=== PATIENT | male | born 1955 | race Caucasian/White ===

== ENCOUNTER 2020-01-27 14:31 | Outpatient (CLI) | payer BC, SELFPAY ==
--- NOTE | ~2020-01-27 | XR_ITS ---
EXAMINATION: XR lumbar spine 2-3V EXAM DATE: 01/27/2020 15:06 INDICATION: Low back pain. TECHNIQUE: Lumber spine frontal, lateral, lateral L5-S1 projections for interpretation. There is no prior study for comparison. FINDINGS: There is mild to moderate disc disease at L4-5, mild disc disease at the other lumbar leve ls. Vertebral body heights are maintained. The vertebral bodies are aligned in the AP dimension. Sacr um, sacroiliac joints, sacral arcuate lines are intact. There is mild abdominal aortic and iliac david riosclerotic disease. There is moderate lower lumbar facet arthropathy. IMPRESSION: 1. Mild to moderate lumbar spondylosis. Reviewed, dictated and finalized at location A.
--- NOTE | ~2020-01-27 | XR_ITS ---
EXAMINATION: XR thoracic spine 2V EXAM DATE: 01/27/2020 15:06 INDICATION: Dorsalgia, mid back pain. TECHNIQUE: Frontal and lateral projections of the thoracic spine as well as lateral swimmers projecti on of the upper thoracic spine for interpretation. There is no prior study for comparison. FINDINGS: Mild diffuse mid and lower thoracic disc disease. No endplate erosive change. There is so me thoracic kyphosis, but the vertebral body heights are relatively well-maintained. Paraspinal soft tissue is unremarkable. IMPRESSION: 1. Mild mid thoracic kyphosis. 2. Mild spondylosis. Reviewed, dictated and finalized at location A.
== END 2020-01-27 14:32 | disposition home or self-care (01) ==
PROVIDERS: PCP Family Medicine; Visit Provider Family Medicine
DX: M54.9 Dorsalgia, unspecified (principal); M40.294 Other kyphosis, thoracic region; M47.814 Spondylosis without myelopathy or radiculopathy, thoracic region; M47.816 Spondylosis without myelopathy or radiculopathy, lumbar region
CPT/HCPCS: 72070; 72100

== ENCOUNTER → 2020-11-19 02:52 | Outpatient (CLI) | payer MEDICARE, SELFPAY ==
[2020-11-19 19:44] LABS: SARS-CoV-2 RNA PCR Negative
== END ==
PROVIDERS: PCP Family Medicine; Visit Provider Internal Medicine Gastroenterology
DX: Z01.812 Encounter for preprocedural laboratory examination (principal); Z20.822 Contact with and (suspected) exposure to COVID-19
CPT/HCPCS: C9803; U0003; U0005

== ENCOUNTER 2020-11-22 00:24 | Day surgery (SDC) | payer MEDICARE, SELFPAY ==
[2020-11-11 12:13] VITALS: BMI 24.4
[2020-11-22 09:26] VITALS: BP 142/83; PULSE 72; RESP 16; TEMP 35.8; O2SAT 100; BMI 23.9
[2020-11-22] MEDS: LACTATED RINGERS 1,000 ML 150 ML IV CONT (09:36)
--- NOTE | 2020-11-22 10:11 | WPDANESEPPF ---
Anes - Initial Pre Proc Eval Procedure: Operation Date: 11/22/20 10:30 Proposed Procedures p Screening Colonoscopy - Tariq Oliver MD Date/Time: 11/22/20 10:11 Surgeon: Tariq Oliver MD Pre Op Diagnosis: hx colon polyps, family hx colon CA Patient Data Age: 65 Gender: M Height: 5 ft 9 in Weight: 73.6 kg Last Vital Signs Temp 96.5 F L 11/22/20 09:26 Pulse 72 11/22/20 09:26 Resp 16 11/22/20 09:26 BP 142/83 H 11/22/20 09:26 Pulse Ox 100 11/22/20 09:26 Allergies Allergy/AdvReac Type Severity Reaction Status Date / Time No Known Allergies Allergy Mild Verified 11/22/20 09:24 Home Medications Medication Instructions Recorded Confirmed Type rivaroxaban 20 mg tablet 20 mg PO DAILY 09/21/19 11/22/20 History multivitamin 1 tablet PO DAILY 07/18/20 11/22/20 History lisinopril 10 mg tablet See Rx Instructions .ROUTE 07/26/20 11/22/20 Rx .COMPLEX #90 tablet atorvastatin 10 mg tablet See Rx Instructions .ROUTE 08/26/20 11/22/20 Rx .COMPLEX #90 tablet metoprolol tartrate 50 mg tablet See Rx Instructions .ROUTE 11/22/20 11/22/20 Rx .COMPLEX #60 tablet Patient hx anesthesia problems: none Family hx anesthesia problems: none [facility] Past Medical History Medical History (Updated 10/24/20 @ 11:09 by Odilia Wharton PA-C) A-fib Diverticulitis Hemoglobin A1c less than 7.0% 05/24/20, A1c= 5.4 Hepatitis C antibody test negative (04/16/17) History of cardioversion Surgical History Surgical History H/O hernia repair H/O prior ablation treatment Family History Family History (Updated 10/24/20 @ 11:02 by Odilia Wharton PA-C) Father Acute myocardial infarction Carcinoma of colon Sibling Malignant neoplasm of prostate Social History Social History Smoking packs per day: 1 Smoking cigarettes per day: 20.0 Years smoked: 15 Smoking pack-years: 15.00 Smoking status: Former smoker Tobacco type: cigarettes Smoking end date: 08/05/10 Alcohol intake: current Drinks per week: 10 Substance use: current Substance use type: marijuana Last use: 11/11/2020 Living arrangements: with family Gender identity (if verbalized by the patient): Male Spiritual care concerns: No Anes - Eval Final PreProcedure Day of Procedure 11/22/20 10:11 Patient weight: normal Heart: regular rate and rhythm Lungs: clear to auscultation Airway: Mallampati scale class II Neurological: alert and oriented Last oral intake: >/= 8 hours ASA classification: III Emergent: no Anesthetic plan: proceed Anesthesia type and monitoring: general GIVS and standard monitoring Informed Consent: The patient's anesthetic plan and its attendant risks and benefits were discussed with the patient/family/POA. Questions were solicited and answers provided to the satisfaction of the patient/family/POA.
--- NOTE | 2020-11-22 10:25 | PM.HPGS ---
History of Present Illness History of Present Illness Consent: Risks, benefits, and alternatives have been discussed and questions answered. Patient agrees to proceed with procedure. Chief complaint: hx colon polyps, family hx colon CA Narrative: Félix Tobias is a 65 year old male Here for colon cancer screening. His father had colon cancer Review of Systems Review of Systems: All systems reviewed & are unremarkable except as noted in HPI and below PMFSH Past Medical History Medical History A-fib Diverticulitis Hemoglobin A1c less than 7.0% 05/24/20, A1c= 5.4 Hepatitis C antibody test negative (04/16/17) History of cardioversion Surgical History Surgical History H/O hernia repair H/O prior ablation treatment Family History Family History Father Acute myocardial infarction Carcinoma of colon Sibling Malignant neoplasm of prostate Social History Social History Smoking packs per day: 1 Smoking cigarettes per day: 20.0 Years smoked: 15 Smoking pack-years: 15.00 Smoking status: Former smoker Tobacco type: cigarettes Smoking end date: 08/05/10 Alcohol intake: current Drinks per week: 10 Substance use: current Substance use type: marijuana Last use: 11/11/2020 Living arrangements: with family Gender identity (if verbalized by the patient): Male Spiritual care concerns: No Meds Home Medications and Allergies Home Medications Medication Instructions Recorded Confirmed Type rivaroxaban 20 mg tablet 20 mg PO DAILY 09/21/19 11/22/20 History multivitamin 1 tablet PO DAILY 07/18/20 11/22/20 History lisinopril 10 mg tablet See Rx Instructions .ROUTE 07/26/20 11/22/20 Rx .COMPLEX #90 tablet atorvastatin 10 mg tablet See Rx Instructions .ROUTE 08/26/20 11/22/20 Rx .COMPLEX #90 tablet metoprolol tartrate 50 mg tablet See Rx Instructions .ROUTE 11/22/20 11/22/20 Rx .COMPLEX #60 tablet Allergies Allergy/AdvReac Type Severity Reaction Status Date / Time No Known Allergies Allergy Mild Verified 11/22/20 09:24 Vital Signs Vital Signs - 24 hr 11/22/20 09:26 Temperature 35.8 C L Pulse Rate 72 Respiratory Rate 16 Blood Pressure 142/83 H Pulse Oximetry 100 Exam Resp: Auscultation: clear to auscultation bilaterally Cardio: Rate: regular rate Rhythm: regular rhythm GI: GI Palp: Yes Soft to palpation and No Tenderness to palpation present (GI) Assessment and Plan Assessment and plan (1) Colon cancer screening: Code(s): Z12.11 - Encounter for screening for malignant neoplasm of colon Status: Acute Assessment and Plan: Colonoscopy with possible biopsy or polypectomy or cautery or injection of substances.
[2020-11-22 11:08] VITALS: BP 106/72; PULSE 74; RESP 23; O2SAT 99
[2020-11-22 11:18] VITALS: BP 112/60; PULSE 65; RESP 16; O2SAT 99
[2020-11-22 11:28] VITALS: BP 119/80; PULSE 65; RESP 20; O2SAT 98
== END 2020-11-22 11:38 | disposition home or self-care (01) ==
PROVIDERS: PCP Family Medicine; Visit Provider Internal Medicine Gastroenterology
PROC: 0DJD8ZZ Inspection of Lower Intestinal Tract, Via Natural or Artificial Opening Endoscopic (ICD-10-PCS; CPT 45378; principal; 2020-11-22 10:30)
DX: Z12.11 Encounter for screening for malignant neoplasm of colon (principal); K57.30 Diverticulosis of large intestine without perforation or abscess without bleeding; K64.8 Other hemorrhoids; Z86.010 Personal history of colon polyps; Z80.0 Family history of malignant neoplasm of digestive organs; I48.91 Unspecified atrial fibrillation; Z79.01 Long term (current) use of anticoagulants; Z87.891 Personal history of nicotine dependence; F12.90 Cannabis use, unspecified, uncomplicated
CPT/HCPCS: G0105; C9803; J2704; J7120; U0003; U0005

== ENCOUNTER 2022-03-07 09:05 | Outpatient (CLI) | payer MEDICARE, SELFPAY ==
--- NOTE | ~2022-03-07 | CT_ITS ---
EXAMINATION: CT abdomen pelvis w con DATE: 03/07/2022 09:49 INDICATION: Left lower quadrant abdominal pain. Father had stomach cancer. TECHNIQUE: Computed tomography (CT) of the abdomen and pelvis was performed with 100 CC Omnipaque 350 intravenous contrast. Automated exposure control and iterative reconstruction technique were employe d. Exam dose: 302.62 mGy-cm total exam DLP. COMPARISON: 06/23/2018 CT abdomen pelvis FINDINGS: Minimal discoid atelectasis or scarring at the lung bases. Normal heart size. No pericardial or pleural effusion. Small sliding hiatal hernia. There are several hepatic cysts measuring up to approximately 9 the gall bladder appears unremarkable. No bile duct or pancreatic duct dilatation. No pancreatic mass lesion o r calcification. Normal splenic size. Normal adrenal morphology bilaterally. Approximately 1 cm and 2.3 cm right renal cysts. The kidneys are otherwise unremarkable. No urinary t ract calculus or hydroureteronephrosis. There is moderate diffuse thickening of the urinary bladder w all, likely due to moderate prostatomegaly. No inguinal hernia is evident. There is atherosclerotic calcification but normal caliber of the abdominal aorta and iliac arteries. No intraperitoneal or retroperitoneal or pelvic mass lesion or adenopathy or ascites. The stomach is relatively decompressed which likely accounts for diffuse moderate prominence of the s tomach wall. No apparent focal gastric mass lesion is evident on this limited examination of the stom ach. Upper gastrointestinal series or upper endoscopy would be more sensitive for detection of gastri c carcinoma. Normal appendix. Diverticulosis of left and right colon; no evidence of diverticulitis. No bowel obst ruction, bowel wall thickening, pneumatosis or intraperitoneal free air is detected. Very small fat-containing umbilical hernia. Included skeletal structures are unremarkable other than mild degenerative change of the thoracic and lumbar spine and bilateral hip osteoarthritis. IMPRESSION: Small sliding hiatal hernia Stable hepatic cysts Right renal cysts Prostatomegaly, likely accounting for moderate thickening of the urinary bladder wall Normal appendix Diverticulosis of left and right colon; no evidence of diverticulitis Reviewed, dictated and finalized at Location A. Reviewed, dictated and finalized at location B. IMPRESSION: Small sliding hiatal hernia Stable hepatic cysts Right renal cysts Prostatomegaly, likely accounting for moderate thickening of the urinary bladde r wall Normal appendix Diverticulosis of left and right colon; no evidence of diverticulitis
[2022-03-07 09:40] LABS: Estimated Glomerular Filt Rate > 60
== END 2022-03-07 09:06 | disposition home or self-care (01) ==
PROVIDERS: PCP Family Medicine; Visit Provider Family Medicine
DX: R10.32 Left lower quadrant pain (principal); Z80.0 Family history of malignant neoplasm of digestive organs; K44.9 Diaphragmatic hernia without obstruction or gangrene; K76.89 Other specified diseases of liver; N28.1 Cyst of kidney, acquired; N40.0 Benign prostatic hyperplasia without lower urinary tract symptoms; K57.30 Diverticulosis of large intestine without perforation or abscess without bleeding
CPT/HCPCS: 74177; Q9967

== ENCOUNTER 2023-01-23 08:46 | Outpatient (CLI) | payer MEDICARE, SELFPAY ==
[2023-01-23 17:30] LABS: Hematocrit 44.2 % (42.0-52.0); Hemoglobin 14.5 g/dL (14.0-18.0); Immature Platelet Fraction Pct 13.3 % (0.9-11.2); Mean Corpuscular HGB Conc 32.8 g/dl (32-36); Mean Corpuscular Hemoglobin 31.7 pg (26-34); Mean Corpuscular Volume 96.5 fl (80-100); Mean Platelet Volume 13.1 fl (7.4-10.4); Platelet Count Result 254 k/mm3 (150-375); Red Blood Count 4.58 M/mm3 (4.6-6.20); Red Cell Distribution Width 13.4 % (11.5-14.5); White Blood Count 9.3 K/mm3 (4.5-10.0)
[2023-01-23 20:25] LABS: Alanine Aminotransferase 25 U/L (6-50); Albumin Level 4.2 g/dL (3.5-5.1); Alkaline Phosphatase 75 U/L (38-126); Anion Gap 5 mmol/L (8-16); Aspartate Amino Transferase 43 U/L (17-59); Bilirubin,Total 0.9 mg/dL (0.2-1.3); Blood Urea Nitrogen 18 mg/dL (9-20); Calcium 8.8 mg/dL (8.4-10.2); Carbon Dioxide 26 mmol/L (22-30); Chloride 105 mmol/L (98-107); Cholesterol 169 mg/dL (0-200); Estimated Glomerular Filt Rate > 60; Glucose 100 mg/dL (65-110); HDL Direct 56 mg/dL; Potassium 4.3 mmol/L (3.4-5.0); Sodium 136 mmol/L (137-145); Triglycerides 149 mg/dL (<150)
[2023-01-23 20:36] LABS: LDL Cholesterol Direct 82 mg/dL
[2023-01-23 20:54] LABS: Iron 158 ug/dL (49-181); Prostate Specific Antigen 2.1 ng/mL (< OR = 4.0)
[2023-01-23 21:03] LABS: Percent Iron Saturation 54 % (20-50)
[2023-01-23 22:25] LABS: Hemoglobin A1C 5.5 % (<5.7)
== END 2023-01-23 08:47 | disposition home or self-care (01) ==
LOC: ANHASCLAB 08:50 → ANHGOSHLAB 09:01
PROVIDERS: PCP Family Medicine; Visit Provider Family Medicine
DX: R73.03 Prediabetes (principal); E78.5 Hyperlipidemia, unspecified; D64.9 Anemia, unspecified; I10 Essential (primary) hypertension; Z12.5 Encounter for screening for malignant neoplasm of prostate
CPT/HCPCS: 36415; 80053; 80061; 82728; 83036; 83540; 83550; 84153; 84443; 85027; 85055; G0103

== ENCOUNTER 2024-10-16 00:05 | Day surgery (SDC) | payer MEDICARE, SELFPAY ==
[2024-10-15 15:35] VITALS: BMI 23.0
[2024-10-16] VITALS (8 sets, daily range): BP systolic 106–118; BP diastolic 81–95; PULSE 71–136; RESP 12–20; TEMP 36.4; O2SAT 98–100
--- OUTSIDE RECORDS SUMMARY | 2024-10-16 00:07 | XMS_ITS | Referral Summary ---
Author Organization [facility] [place] [address] [place] [address] [address] [place] [address] Care Team Providers Care Rfid Analyst Name Role Phone Lani Feng DO Primary Care Provider [phone]- [phone] Encounters Date Type Department Care Team Description 10/13/2024 Telephone [facility] Cardiology [address] [place] [address] Trevon Negron MD 10/13/2024 9:30 AM CDT Office Visit [facility] Medical [facility] Cardiology [address] [place] [address] Trevon Negron MD PAF (paroxysmal atrial fibrillation) (HCC) (Primary Dx); Essential hypertension; PFO (patent foramen ovale); Chronic anticoagulation from Last 3 Months Allergies No known active allergies Medications metoprolol (LOPRESSOR) 50 mg tablet Take one by mouth two times per day prn for fast HR 0 02/11/2009 Active atorvastatin (LIPITOR) 10 mg tablet take 1 tablet by oral route every other day 0 0 08/03/2014 Active lisinopril (PRINIVIL,ZESTRI L) 10 mg tablet take 1 tablet by oral route every day 30 5 03/31/2015 Active zw-njj-rtmjn-lyc [id number] 200-175-250 mcg tablet Take 1 tablet by mouth daily Active ferrous sulfate 325 mg (65 mg of elemental iron) tablet Take 1 tablet (325 mg total) by mouth 2 (two) times a day 11/01/2021 Active Xarelto 20 mg tabletIndication s:PAF (paroxysmal atrial fibrillation) (HCC) TAKE 1 TABLET BY MOUTH EVERY DAY 30 tablet 5 2024 Active Active Problems Problem Noted Date Diagnosed Date PFO (patent foramen ovale) 05/03/2021 PND (paroxysmal nocturnal dyspnea) 04/19/2020 Chronic anticoagulation 10/24/2018 Status post circumferential ablation of pulmonar y vein 01/06/2018 PAF (paroxysmal atrial fibrillation) 10/10/2017 Essential hypertension 10/10/2017 History of tobacco abuse 11/07/2016 Overview (12/28/2016): History of tobacco abuse Social History Tobacco Use Types Packs/Day Years Used Date Smoking Tobacco: Former Cigarettes 1 10 0 10/10/2001 - 10/11/2011 Cigars Smokeless Tobacco: Former Snuff, Chew Tobacco Cessation:Counseling Given: Not Answered Comments:Smoking History Packs/day: 1.5 Packs Alcohol Use Standard Drinks/Week Comments Yes 12 (1 standard drink = 0.6 oz pu re alcohol) Sex and Gender Information Value Date Recorded Sex Assigned at Not on file 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 Gender Identity Male 04/26/2021 10:13 AM CDT Sexual Orientation Straight 04/26/2021 10 :13 AM CDT Last Filed Vital Signs Vital Sign Reading Time Taken Comments Blood Pressure 122/78 10/13/2024 9:17 AM CDT Pulse 125 10/13/2024 9:17 AM CDT Temperature 36.4 C (97.5 F) 11/09/2020 8:04 AM CDT Respiratory Rate - - Oxygen Saturation 99% 10/13/2024 9:17 AM CDT Inhaled Oxygen Concentration - - Weight 72.6 kg (160 lb) 10/13/2024 9:17 AM CDT Height 175.3 cm (5' 9 ) 10/13/2024 9:17 AM CDT Body Mass Index 23.63 10/13/2024 9:17 AM CDT Plan of Treatment Not on file Procedures Procedure Name Priority Date/Time Associated Diagnosis Comments ELECTROCARDIOGRAM REPORT Routine 025 10:31 AM CDT PAF (paroxysmal atrial fibrillation) (HCC) from Last 3 Months Results * Electrocardiogram Report (10/13/2024 10:31 AM CDT) us Trevon Negron MD ECG ORDERABLES Final Res ult from Last 3 Months Insurance [employer] Care Teams Rfid Analyst Relationship Specialty Start Date End Date Lani Feng DO PCP - General Family Medicine 10/12/19
--- OUTSIDE RECORDS SUMMARY | 2024-10-16 00:07 | XMS_ITS | Clinical Summary ---
Author Organization [facility] [place] [address] [place] [address] Care Team Providers Care Make Up Operator Helper Name Role Phone Lani Feng DO Primary Care Provider [phone]- [phone] Allergies No known active allergies Medications metoprolol (LOPRESSOR) 50 mg tablet Take one by mouth two times per day prn for fast HR 0 02/11/2009 Active atorvastatin (LIPITOR) 10 mg tablet take 1 tablet by oral route every other day 0 0 08/03/2014 Active lisinopril (PRINIVIL,ZESTRI L) 10 mg tablet take 1 tablet by oral route every day 30 5 03/31/2015 Active ux-swt-ircdq-lyc rj-nqs-atwy101 200-175-250 mcg tablet Take 1 tablet by mouth daily Active ferrous sulfate 325 mg (65 mg of elemental iron) tablet Take 1 tablet (325 mg total) by mouth 2 (two) times a day 11/01/2021 Active Xarelto 20 mg tabletIndication s:PAF (paroxysmal atrial fibrillation) ([facility]) TAKE 1 TABLET BY MOUTH EVERY DAY 30 tablet 5 2024 Active Active Problems Problem Noted Date Diagnosed Date PFO (patent foramen ovale) 05/03/2021 PND (paroxysmal nocturnal dyspnea) 04/19/2020 Chronic anticoagulation 10/24/2018 Status post circumferential ablation of pulmonar y vein 01/06/2018 PAF (paroxysmal atrial fibrillation) 10/10/2017 Essential hypertension 10/10/2017 History of tobacco abuse 11/07/2016 Overview (12/28/2016): History of tobacco abuse Encounters Date Type Department Care Team Description 10/13/2024 9:30 AM CDT Office Visit [facility] Medical [facility] Cardiology [address] [place] [address] Trevon Negron MD PAF (paroxysmal atrial fibrillation) (HCC) (Primary Dx); Essential hypertension; PFO (patent foramen ovale); Chronic anticoagulation 10/13/2024 Telephone [facility] Cardiology [address] [place] [address] Trevon Negron MD from Last 3 Months Surgical History Surgery Date Site/Laterality Comments VASECTOMY 06/05/04 Medical History Medical History Date Comments Hx Other Medical PAF status post pulmonary vein isolation ablation; Comments: MAF 08/03/2014 - Family History Medical History Relation Name Comments Other Father 2 Meomy Sarcoma; Cause of : Meomy Sarcoma Relation Name Status Comments Father 1 (Age 50) Father 2 Social History Tobacco Use Types Packs/Day Years [...] on file 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 Gender Identity Male 04/26/2021 10:13 AM CDT Sexual Orientation Straight 04/26/2021 10 :13 AM CDT Obstetrics History Last Filed Vital Signs Vital Sign Reading [...] 10/13/2024 9:17 AM CDT Plan of Treatment Health Maintenance Due Date Last Done Comments Colon Cancer Screening-Colonoscopy 1955 Depression Screening 1955 Fall Risk Assessment 1955 Hepatitis C Screening 1955 Prostate Cancer Screening-PSA 1955 DTaP/Tdap/Td Vaccine (1 - Tdap) 1966 Hepatitis B Screening 1973 Pneumococcal vaccine 65+ (1 of 1 - PCV) 2005 Zoster Vaccine (2 of 3) 08/08/2016 06/13/2016 Abdominal Aortic Aneurysm (AAA) Screen 2020 Well Visit 65+ 2020 Influenza Vaccine (#1) 2024 05/18/2019 Procedures Procedure Name Priority Date/Time Associated Diagnosis Comments ELECTROCARDIOGRAM REPORT Routine 025 10:31 AM CDT PAF (paroxysmal atrial fibrillation) (HCC) from Last 3 Months Results * Electrocardiogram Report (10/13/2024 10:31 AM CDT) us Trevon Negron MD ECG ORDERABLES Final Res ult from Last 3 Months Insurance [employer] [facility] MEDICARE Address: [facility] [address] [place] [address] Care Teams Make Up Operator Helper Relationship Specialty Start Date End Date Lani Feng DO PCP - General Family Medicine 10/12/19
--- NOTE | 2024-10-16 08:00 | ECG_ITS ---
Test Date: 2024-10-16 08:11:02 Measurements Intervals [place] Rate: 136 P: 0 [place]: 0 QRS: 11 QRSD: 80 T: 79 QT: 310 QTc: 466 Interpretive Statements ATRIAL FIBRILLATION WITH RAPID VENTRICULAR RESPONSE NONSPECIFIC T-WAVE ABNORMALITY No previous ECG available for comparison Electronically Signed On 10-17-2024 11:36:28 CDT by Chon Ca D.O
[2024-10-16 08:31] LABS: Anion Gap 11 mmol/L (4-12); Blood Urea Nitrogen 19 mg/dL (9-20); Calcium 9.6 mg/dL (8.4-10.2); Carbon Dioxide 26 mmol/L (22-30); Chloride 105 mmol/L (98-107); Estimated CRCL calculation 57 ml/min; Estimated Glomerular Filt Rate > 60; Glucose 103 mg/dL (65-110); Magnesium 2.1 mg/dL (1.6-2.3); Potassium 4.5 mmol/L (3.4-5.0); Sodium 142 mmol/L (137-145)
--- NOTE | 2024-10-16 09:00 | ECG_ITS ---
Test Date: 2024-10-16 09:53:29 Measurements Intervals [place] Rate: 92 P: 69 [place]: 184 QRS: 4 QRSD: 81 T: 60 QT: 386 QTc: 478 Interpretive Statements SINUS RHYTHM WITH FREQUENT SUPRAVENTRICULAR PREMATURE COMPLEXES Electronically Signed On 10-17-2024 11:37:51 CDT by Chon Ca D.O
--- NOTE | 2024-10-16 09:38 | P.SEDATION_ITS ---
Moderate Sedation Note-Pt Data Patient Data Diagnosis: Atrial fibrillation with RVR Present Complaint: Atrial fibrillation with RVR Procedure to be performed/Plan: Synchronized electrical cardioversion Allergies Allergy/AdvReac Type Severity Reaction Status Date / Time No Known Allergies Allergy Mild Verified 10/16/24 08:15 Home Medications ?Medication ?Instructions ?Recorded ?Confirmed ?Type rivaroxaban 20 mg tablet (Xarelto) 20 mg PO DAILY 09/21/19 10/15/24 History multivitamin 1 tablet PO DAILY 07/18/20 10/15/24 History ferrous sulfate 325 mg (65 mg 325 mg PO BID #60 tabs 11/01/21 10/15/24 Rx iron) tablet (Iron (ferrous sulfate)) metoprolol tartrate 50 mg tablet See Rx Instructions .Route 02/25/24 10/15/24 Rx .COMPLEX #180 tabs lisinopril 10 mg tablet See Rx Instructions .Route 06/04/24 10/15/24 Rx .COMPLEX #100 tabs atorvastatin 10 mg tablet See Rx Instructions .Route 08/12/24 10/15/24 Rx .COMPLEX #90 tabs Sedation/Anesthesia: No previous sedation/anesthesia problems (including family history). [facility] Past Medical History Medical History Diverticulitis Hepatitis C antibody test negative (04/16/17) Hemoglobin A1c less than 7.0% 05/24/20, A1c= 5.4 A-fib History of cardioversion Surgical History Surgical History H/O prior ablation treatment H/O hernia repair Family History Family History Father Acute myocardial infarction Carcinoma of colon Sibling Malignant neoplasm of prostate Social History Social History Social History: Caffeine-daily Smoking packs per day: 1 Smoking cigarettes per day: 20.0 Years smoked: 15 Smoking pack-years: 15.00 Smoking status: Former smoker Tobacco type: cigarettes Smoking end date: 08/05/10 Alcohol intake: former Drinks per week: 10 Alcohol use details: beer Substance use: current Substance use type: marijuana Last use: 11/11/2020 Lack of Transportation: No Lack of Food: Never True Current Housing: I Have Housing Concerned About Future Housing: No Difficulty Paying Gas/Electric Bills: No Difficulty Paying for Meds: No Currently Unemployed: No Education: Trade/Vocational Certificate Difficulty w/ Childcare or Family Care: No Living arrangements: with family Additional living arrangements comments: Occupation/Education: retired Gender identity (if verbalized by the patient): Male Spiritual care concerns: No Mod Sed Physical Exam Physical Exam Pre Procedural Exam: Normal: Appearance, Lungs, Neuro Exam, Extremities and Skin and Variation: Heart Rate (Atrial fibrillation with RVR) and Heart Rhythm (Atrial fibrillation with RVR) Hours since solid foods: 12 Hours since liquid intake: 8 Mallampati Classification: class III Internal Medicine - PN: Obj Da Vital Signs Vital Signs: Vital Signs - 24 hr 10/16/24 08:17 Temperature 36.4 C Pulse Rate 131 H Respiratory Rate 14 Blood Pressure 109/89 Pulse Oximetry 100 Oxygen Delivery Room Air Labs 10/16/24 08:18 Labs: Laboratory Results - last 24 hr 10/16/24 08:18 Sodium 142 Potassium 4.5 [place] 105 Carbon Dioxide 26 Anion Gap 11 BUN 19 Creatinine 1.12 Estim Creat Clear Calc 57 Estimated GFR > 60 Glucose 103 Calcium 9.6 Magnesium 2.1 ASA Classification/Sedation ASA Classification/Sedation ASA Class: III Emergent: No Risks: Risks, benefits and alternatives explained and patient/family accepted plan for sedation. Patient re-evaluated immediately prior to sedation.
--- NOTE | 2024-10-16 09:38 | WPDHPUPDATE1 ---
History and Physical Update Update Date/Time: 10/16/24 09:38 History and Physical has been reviewed, including an updated exam of the patient. There are NO changes in the patient's condition. Risks, benefits, and alternatives have been discussed and questions answered. Patient agrees to proceed with procedure.
--- NOTE | 2024-10-16 09:57 | P.PCNCVR_ITS ---
Cardioversion Cardioversion Date of procedure: 10/16/24 Procedure: Synchronized electrical cardioversion Pre-op diagnosis: Atrial fibrillation with RVR Post-op diagnosis: Other (Successful cardioversion to sinus rhythm. ) Indications: Atrial fibrillation with RVR Description of procedure: Written informed consent obtained. Defibrillator pads placed in an anterior- posterior position. Time out performed by RC Gentile. Total of Propofol 80mg IV was administered by me. Once patient was adequately sedated, synchronized electrical cardioversion was performed with 1 shock at 250 joules, which successfully restored sinus rhythm. Patient's hemodynamics and respiratory status was monitored throughout the procedure. No periprocedural complications. Procedure start time: 09:44 AM Procedure end time: 09:51 AM Sedation: Total of Propofol 80mg IV was administered by me. Findings: Successful synchronized electrical cardioversion to sinus rhythm with 1 shock at 250 joules. Conclusion: Successful synchronized electrical cardioversion to sinus rhythm with 1 shock at 250 joules.
== END 2024-10-16 11:05 | disposition home or self-care (01) ==
PROVIDERS: PCP Family Medicine; Visit Provider Internal Medicine
PROC: 5A2204Z Restoration of Cardiac Rhythm, Single (ICD-10-PCS; principal; 2024-10-16 09:30)
DX: I48.0 Paroxysmal atrial fibrillation (principal); R94.31 Abnormal electrocardiogram [ECG] [EKG]; I10 Essential (primary) hypertension; R00.2 Palpitations; Q21.12 Patent foramen ovale; F12.90 Cannabis use, unspecified, uncomplicated; Z79.01 Long term (current) use of anticoagulants; Z98.890 Other specified postprocedural states; Z87.891 Personal history of nicotine dependence; Z86.79 Personal history of other diseases of the circulatory system; Z87.19 Personal history of other diseases of the digestive system; Z80.0 Family history of malignant neoplasm of digestive organs; Z80.42 Family history of malignant neoplasm of prostate; Z82.49 Family history of ischemic heart disease and other diseases of the circulatory system
CPT/HCPCS: 36415; 80048; 83735; 92960; J2704; J7040